=== PATIENT | male | born 1965 | race Caucasian/White ===

== ENCOUNTER 2017-02-22 03:20 | Inpatient (IN) | payer OTHER ==
[~2017-02-22] VITALS: Ht 167.6 cm; Wt 111.4 kg
[~2017-02-22 03:20] MED LIST: ADV100/50 INH; ALBUTEROL0.09 MG/A1 IH; ALPRAZOLAM PO; ALPRAZOLAM2 MG PO; ASPIRIN PO; ATOXIMETIN-B1 CAP PO; CLA10 PO; CLINDAMYCIN HC300 MG PO; COL100 PO; FLO4 PO; FUROSEMIDE40 MG PO; GUAIFENESI100 MG/52 PO; IPRATROPIUM BROM3 M2 HHN; KADIAN60 MG PO; LAC PO; LASIX20 MG PO; LEVAQUIN500 MG PO; LOVASTATIN20 MG PO; MEDDP PO; MORPHINE SULFAT15 M5 PO; MORPHINE SULFAT30 M2 PO; NIC14 TD; OMEPRAZOLE D/R20 M1 PO; OXYC PO; OXYCODONE HCL30 M1 PO; OXYCODONE30 MG PO; PRILOSEC OTC20 MG PO; PROINH INH; PULMICORT0.5 MG/2 M IH; SING10 PO; SPIRIVA18 MC1 INH; SPIRIVA18 MCG IH; TYLENOL PR; WARFARIN SOD5 M1 PO; XAN1 PO; XANAX2 MG PO; XARELTO10 M1 PO; ZES10 PO; ZESTRIL20 MG PO
[2017-02-22 04:06] LABS: PLATELET COUNT 282 x10^3mcL (130-400)
[2017-02-22 04:08] LABS: RED CELL DISTRIBUTION WIDTH 16.3 % (11.5-14.5)
[2017-02-22 04:17] LABS: CARBON DIOXIDE 29.2 mmol/L (21-32); CREATININE SERUM 2.1 mg/dL (0.7-1.3); POTASSIUM SERUM 3.6 mmol/L (3.5-5.1)
[2017-02-22 04:21] LABS: BILIRUBIN TOTAL 1.39 mg/dL (0.20-1.00)
[2017-02-22 04:23] LABS: ALBUMIN 1.9 g/dL (3.4-5.0)
[2017-02-22 04:33] LABS: CK-MB 0.8 ng/mL (0-3.6)
[2017-02-22 06:04] VITALS: BP 123/69
[2017-02-22 06:17] VITALS: BP 115/71
[2017-02-22 08:44] LABS: FREE T4 1.82 ng/dL (0.76-1.46); FREE THYROXINE INDEX 3.5 ug/dL (1.4-4.5); T4(THYROXINE) 9.2 ug/dL (4.7-13.3)
[2017-02-22 08:51] LABS: MAGNESIUM 1.6 mg/dL (1.8-2.4); PHOSPHOROUS 3.9 mg/dL (2.5-4.9)
[2017-02-22 08:52] LABS: CHOLESTEROL/HDL RATIO 3.6
[2017-02-22 09:00] LABS: T3 TOTAL 0.78 ng/mL
[2017-02-22 11:35] VITALS: BP 125/64
[2017-02-22 15:08] VITALS: BP 134/72
[2017-02-22 16:08] LABS: UA SPECIFIC GRAVITY <=1.005 (1.005-1.035); microscopic required? YES; urine erythrocyte 2+ (NEGATIVE)
[2017-02-22 17:55] VITALS: BP 123/72
[2017-02-22 21:38] VITALS: BP 113/72
[2017-02-23] VITALS (10 sets, daily range): BP systolic 90–143; BP diastolic 45–92
[2017-02-23 07:38] LABS: CALCIUM 8.3 mg/dL (8.5-10.1); CARBON DIOXIDE 22.9 mmol/L (21-32); CREATININE SERUM 1.9 mg/dL (0.7-1.3); MAGNESIUM 1.6 mg/dL (1.8-2.4); PHOSPHOROUS 4.3 mg/dL (2.5-4.9); POTASSIUM SERUM 3.7 mmol/L (3.5-5.1)
[2017-02-23 07:49] LABS: PLATELET COUNT 201 x10^3mcL (130-400)
[2017-02-23 08:05] LABS: BASOPHIL % 0 % (0-2); RED CELL DISTRIBUTION WIDTH 16.2 % (11.5-14.5)
[2017-02-24] VITALS (18 sets, daily range): BP systolic 83–117; BP diastolic 43–74
[2017-02-24 05:51] LABS: BASOPHIL % 0.1 % (0-2); PLATELET COUNT 196 x10^3mcL (130-400)
[2017-02-24 05:57] LABS: CALCIUM 8.3 mg/dL (8.5-10.1); CARBON DIOXIDE 23.3 mmol/L (21-32); MAGNESIUM 1.7 mg/dL (1.8-2.4); POTASSIUM SERUM 3.4 mmol/L (3.5-5.1)
[2017-02-24 06:07] LABS: RED CELL DISTRIBUTION WIDTH 16.6 % (11.5-14.5)
[2017-02-24 07:07] LABS: AMPHETAMINE QUAL UR NONE DETECTED (NEG <=1000)
[2017-02-25] VITALS (17 sets, daily range): BP systolic 18–120; BP diastolic 44–74
[2017-02-25 05:56] LABS: CALCIUM 8.2 mg/dL (8.5-10.1); CARBON DIOXIDE 23.4 mmol/L (21-32); MAGNESIUM 1.9 mg/dL (1.8-2.4); PHOSPHOROUS 2.8 mg/dL (2.5-4.9); POTASSIUM SERUM 4.1 mmol/L (3.5-5.1)
[2017-02-25 06:20] LABS: BASOPHIL % 0.1 % (0-2); PLATELET COUNT 169 x10^3mcL (130-400)
[2017-02-25 06:22] LABS: RED CELL DISTRIBUTION WIDTH 16.5 % (11.5-14.5)
[2017-02-26] VITALS (18 sets, daily range): BP systolic 87–129; BP diastolic 49–110
[2017-02-26 05:48] LABS: BASOPHIL % 0.2 % (0-2); PLATELET COUNT 186 x10^3mcL (130-400); RED CELL DISTRIBUTION WIDTH 17.2 % (11.5-14.5)
[2017-02-26 05:52] LABS: CALCIUM 8.1 mg/dL (8.5-10.1); CARBON DIOXIDE 24.6 mmol/L (21-32); CREATININE SERUM 2.1 mg/dL (0.7-1.3); MAGNESIUM 2.1 mg/dL (1.8-2.4); PHOSPHOROUS 2.9 mg/dL (2.5-4.9); POTASSIUM SERUM 4.5 mmol/L (3.5-5.1)
[2017-02-27] VITALS (16 sets, daily range): BP systolic 108–138; BP diastolic 39–89
[2017-02-27 05:47] LABS: CALCIUM 8.3 mg/dL (8.5-10.1); CARBON DIOXIDE 23.6 mmol/L (21-32); CREATININE SERUM 2.1 mg/dL (0.7-1.3); PHOSPHOROUS 3.9 mg/dL (2.5-4.9); POTASSIUM SERUM 4.9 mmol/L (3.5-5.1)
[2017-02-27 05:49] LABS: BASOPHIL % 0.4 % (0-2); PLATELET COUNT 179 x10^3mcL (130-400)
[2017-02-27 05:50] LABS: RED CELL DISTRIBUTION WIDTH 17.2 % (11.5-14.5)
[2017-02-28] VITALS (18 sets, daily range): BP systolic 109–138; BP diastolic 56–95
[2017-02-28 04:41] LABS: BASOPHIL % 1.5 % (0-2); PLATELET COUNT 178 x10^3mcL (130-400)
[2017-02-28 04:47] LABS: RED CELL DISTRIBUTION WIDTH 17.2 % (11.5-14.5)
[2017-02-28 04:54] LABS: CALCIUM 8.2 mg/dL (8.5-10.1); CARBON DIOXIDE 24.5 mmol/L (21-32); CREATININE SERUM 1.9 mg/dL (0.7-1.3); MAGNESIUM 1.9 mg/dL (1.8-2.4); PHOSPHOROUS 3.7 mg/dL (2.5-4.9); POTASSIUM SERUM 4.2 mmol/L (3.5-5.1)
[2017-03-01] VITALS (19 sets, daily range): BP systolic 99–135; BP diastolic 59–87
[2017-03-01 05:12] LABS: CALCIUM 8.2 mg/dL (8.5-10.1); CARBON DIOXIDE 24.4 mmol/L (21-32); CREATININE SERUM 1.6 mg/dL (0.7-1.3); POTASSIUM SERUM 4.4 mmol/L (3.5-5.1)
[2017-03-01 05:19] LABS: BASOPHIL % 0.3 % (0-2); PLATELET COUNT 184 x10^3mcL (130-400)
[2017-03-01 05:20] LABS: RED CELL DISTRIBUTION WIDTH 17.2 % (11.5-14.5)
[2017-03-02] VITALS (18 sets, daily range): BP systolic 94–138; BP diastolic 52–90
[2017-03-02 03:06] LABS: BASOPHIL % 0.1 % (0-2); PLATELET COUNT 179 x10^3mcL (130-400)
[2017-03-02 03:22] LABS: RED CELL DISTRIBUTION WIDTH 17.4 % (11.5-14.5)
[2017-03-02 03:23] LABS: CALCIUM 8.1 mg/dL (8.5-10.1); CARBON DIOXIDE 24.8 mmol/L (21-32); CREATININE SERUM 1.5 mg/dL (0.7-1.3); MAGNESIUM 1.8 mg/dL (1.8-2.4); PHOSPHOROUS 3.1 mg/dL (2.5-4.9); POTASSIUM SERUM 4.1 mmol/L (3.5-5.1)
[2017-03-03] VITALS (17 sets, daily range): BP systolic 87–141; BP diastolic 53–86
[2017-03-03 05:41] LABS: BASOPHIL % 0.1 % (0-2); PLATELET COUNT 152 x10^3mcL (130-400)
[2017-03-03 05:51] LABS: CARBON DIOXIDE 24.7 mmol/L (21-32); CREATININE SERUM 1.5 mg/dL (0.7-1.3); POTASSIUM SERUM 4.4 mmol/L (3.5-5.1)
[2017-03-03 05:59] LABS: RED CELL DISTRIBUTION WIDTH 18.2 % (11.5-14.5)
[2017-03-04] VITALS (17 sets, daily range): BP systolic 97–129; BP diastolic 64–97
[2017-03-04 06:14] LABS: CARBON DIOXIDE 23.2 mmol/L (21-32); CREATININE SERUM 1.5 mg/dL (0.7-1.3); MAGNESIUM 1.8 mg/dL (1.8-2.4); PHOSPHOROUS 3.9 mg/dL (2.5-4.9); PLATELET COUNT 130 x10^3mcL (130-400); POTASSIUM SERUM 4.2 mmol/L (3.5-5.1)
[2017-03-04 06:15] LABS: BASOPHIL % 0 % (0-2); RED CELL DISTRIBUTION WIDTH 18.1 % (11.5-14.5)
[2017-03-05] VITALS (19 sets, daily range): BP systolic 89–141; BP diastolic 41–109
[2017-03-05 05:38] LABS: BASOPHIL % 0.5 % (0-2)
[2017-03-05 05:44] LABS: PLATELET COUNT 122 x10^3mcL (130-400); RED CELL DISTRIBUTION WIDTH 18.5 % (11.5-14.5)
[2017-03-05 05:52] LABS: CARBON DIOXIDE 24.8 mmol/L (21-32); CREATININE SERUM 1.4 mg/dL (0.7-1.3); MAGNESIUM 1.7 mg/dL (1.8-2.4); PHOSPHOROUS 3.6 mg/dL (2.5-4.9); POTASSIUM SERUM 4.2 mmol/L (3.5-5.1)
[2017-03-06] VITALS (14 sets, daily range): BP systolic 76–140; BP diastolic 45–98
[2017-03-06 05:25] LABS: BASOPHIL % 0.9 % (0-2)
[2017-03-06 05:36] LABS: PLATELET COUNT 103 x10^3mcL (130-400); RED CELL DISTRIBUTION WIDTH 18.5 % (11.5-14.5)
[2017-03-06 05:43] LABS: CALCIUM 7.7 mg/dL (8.5-10.1); CARBON DIOXIDE 29.7 mmol/L (21-32); CREATININE SERUM 1.4 mg/dL (0.7-1.3); MAGNESIUM 2.2 mg/dL (1.8-2.4); PHOSPHOROUS 3.8 mg/dL (2.5-4.9); POTASSIUM SERUM 3.1 mmol/L (3.5-5.1)
[2017-03-07] VITALS (19 sets, daily range): BP systolic 89–137; BP diastolic 34–90
[2017-03-07 05:13] LABS: CARBON DIOXIDE 26.4 mmol/L (21-32); CREATININE SERUM 1.5 mg/dL (0.7-1.3); POTASSIUM SERUM 3.8 mmol/L (3.5-5.1)
[2017-03-07 05:34] LABS: PLATELET COUNT 103 x10^3mcL (130-400); RED CELL DISTRIBUTION WIDTH 20.5 % (11.5-14.5)
[2017-03-07 06:08] LABS: BAND NEUTROPHIL 0 % (0-10); BASOPHIL 0 % (0-2); MONOCYTE 6 % (0-7); SEGMENTED NEUTROPHILS 87 % (37-75)
[2017-03-07 06:11] LABS: ovalocyte/elliptocyte 1+; rbc morphology (normal/abnorm) ABNORMAL (NORMAL)
[2017-03-07 06:12] LABS: PLATELET MORPHOLOGY PLATELETS DECREASED
[2017-03-08] VITALS (9 sets, daily range): BP systolic 99–139; BP diastolic 60–110
[2017-03-08 05:57] LABS: PLATELET COUNT 121 x10^3mcL (130-400); RED CELL DISTRIBUTION WIDTH 21.6 % (11.5-14.5)
[2017-03-08 06:08] LABS: CALCIUM 8.1 mg/dL (8.5-10.1); CARBON DIOXIDE 26.2 mmol/L (21-32); CREATININE SERUM 1.5 mg/dL (0.7-1.3); PHOSPHOROUS 3.2 mg/dL (2.5-4.9); POTASSIUM SERUM 4.1 mmol/L (3.5-5.1)
[2017-03-08 08:13] LABS: BAND NEUTROPHIL 0 % (0-10); BASOPHIL 0 % (0-2); MONOCYTE 6 % (0-7); SEGMENTED NEUTROPHILS 85 % (37-75)
[2017-03-08 08:15] LABS: PLATELET MORPHOLOGY PLATELETS NORMAL; rbc morphology (normal/abnorm) ABNORMAL (NORMAL)
[2017-03-08 08:16] LABS: ovalocyte/elliptocyte 1+; tear drop cell (dacryocyte) 1+
[2017-03-09] VITALS (18 sets, daily range): BP systolic 95–136; BP diastolic 40–82
[2017-03-09 05:34] LABS: CALCIUM 8.1 mg/dL (8.5-10.1); CARBON DIOXIDE 26.2 mmol/L (21-32); CREATININE SERUM 1.4 mg/dL (0.7-1.3); MAGNESIUM 1.8 mg/dL (1.8-2.4); PHOSPHOROUS 2.9 mg/dL (2.5-4.9); PLATELET COUNT 104 x10^3mcL (130-400); RED CELL DISTRIBUTION WIDTH 20.6 % (11.5-14.5)
[2017-03-09 05:45] LABS: BAND NEUTROPHIL 2 % (0-10); METAMYELOCTE 2 % (0-2); MONOCYTE 2 % (0-7); SEGMENTED NEUTROPHILS 83 % (37-75)
[2017-03-09 05:48] LABS: ovalocyte/elliptocyte 1+; rbc morphology (normal/abnorm) ABNORMAL (NORMAL); tear drop cell (dacryocyte) 1+
[2017-03-10] VITALS (17 sets, daily range): BP systolic 86–131; BP diastolic 39–92
[2017-03-10 05:42] LABS: CALCIUM 8.4 mg/dL (8.5-10.1); CARBON DIOXIDE 26.8 mmol/L (21-32); CREATININE SERUM 1.5 mg/dL (0.7-1.3); MAGNESIUM 1.7 mg/dL (1.8-2.4); PHOSPHOROUS 3.9 mg/dL (2.5-4.9); POTASSIUM SERUM 3.6 mmol/L (3.5-5.1)
[2017-03-10 06:17] LABS: BASOPHIL % 0.6 % (0-2); PLATELET COUNT 75 x10^3mcL (130-400); RED CELL DISTRIBUTION WIDTH 21.4 % (11.5-14.5)
[2017-03-10 08:31] LABS: ovalocyte/elliptocyte 1+; rbc morphology (normal/abnorm) ABNORMAL (NORMAL)
[2017-03-11] VITALS (18 sets, daily range): BP systolic 82–123; BP diastolic 39–75
[2017-03-11 05:33] LABS: BASOPHIL % 0.5 % (0-2)
[2017-03-11 05:45] LABS: CALCIUM 8.2 mg/dL (8.5-10.1); CARBON DIOXIDE 28.3 mmol/L (21-32); CREATININE SERUM 1.6 mg/dL (0.7-1.3); MAGNESIUM 1.9 mg/dL (1.8-2.4); PHOSPHOROUS 3.2 mg/dL (2.5-4.9); POTASSIUM SERUM 3.6 mmol/L (3.5-5.1)
[2017-03-11 06:02] LABS: PLATELET COUNT 78 x10^3mcL (130-400); RED CELL DISTRIBUTION WIDTH 21.3 % (11.5-14.5)
[2017-03-11 06:36] LABS: ovalocyte/elliptocyte 1+; rbc morphology (normal/abnorm) ABNORMAL (NORMAL); tear drop cell (dacryocyte) 1+
[2017-03-12] VITALS (17 sets, daily range): BP systolic 82–109; BP diastolic 44–81
[2017-03-12 05:46] LABS: BASOPHIL % 0.5 % (0-2)
[2017-03-12 05:47] LABS: CALCIUM 8.1 mg/dL (8.5-10.1); CARBON DIOXIDE 28.5 mmol/L (21-32); CREATININE SERUM 1.6 mg/dL (0.7-1.3); MAGNESIUM 1.8 mg/dL (1.8-2.4); PHOSPHOROUS 3.1 mg/dL (2.5-4.9); POTASSIUM SERUM 3.2 mmol/L (3.5-5.1)
[2017-03-12 05:51] LABS: RED CELL DISTRIBUTION WIDTH 22.4 % (11.5-14.5)
[2017-03-12 05:53] LABS: PLATELET COUNT 83 x10^3mcL (130-400)
[2017-03-12 06:00] LABS: rbc morphology (normal/abnorm) ABNORMAL (NORMAL)
[2017-03-12 06:02] LABS: ovalocyte/elliptocyte 1+
[2017-03-13] VITALS (20 sets, daily range): BP systolic 84–130; BP diastolic 45–83; Ht 167.6 cm; Wt 111.4 kg
[2017-03-13 05:37] LABS: BASOPHIL % 0.4 % (0-2)
[2017-03-13 05:39] LABS: PLATELET COUNT 76 x10^3mcL (130-400); RED CELL DISTRIBUTION WIDTH 22.3 % (11.5-14.5)
[2017-03-13 05:47] LABS: CALCIUM 8.1 mg/dL (8.5-10.1); CREATININE SERUM 1.5 mg/dL (0.7-1.3); MAGNESIUM 1.8 mg/dL (1.8-2.4); PHOSPHOROUS 3.2 mg/dL (2.5-4.9); POTASSIUM SERUM 3.7 mmol/L (3.5-5.1)
[2017-03-13 05:54] LABS: rbc morphology (normal/abnorm) ABNORMAL (NORMAL)
[2017-03-13 05:55] LABS: ovalocyte/elliptocyte 1+; tear drop cell (dacryocyte) 1+
[2017-03-13] MEDS ORDERED: IPRATROPIUM BROM3 M2 HHN ×2 (13:41→13:42)
[2017-03-13] MEDS ORDERED: NIT0.4 SL (13:42)
[2017-03-13] MEDS ORDERED: BET80 PO (13:45)
[2017-03-13] MEDS ORDERED: TYL325 PO (13:45)
[2017-03-13] MEDS ORDERED: BG FS (13:46)
[2017-03-13] MEDS ORDERED: LAC30L PO (13:46)
[2017-03-13] MEDS ORDERED: KCL20L NG ×2 (13:47)
[2017-03-13] MEDS ORDERED: L20I IV (13:49)
[2017-03-13] MEDS ORDERED: DEXPF IV (13:49)
[2017-03-13] MEDS ORDERED: PULMICORT0.5 MG/2 M IH (13:51)
[2017-03-13] MEDS ORDERED: AMITIZA24 MC1 PO (13:51)
[2017-03-13] MEDS ORDERED: ZOFI IV (13:52)
[2017-03-13] MEDS ORDERED: PROTONIX40 MG/Pac1 NG (13:53)
[2017-03-13] MEDS ORDERED: REGL NG (13:54)
[2017-03-13] MEDS ORDERED: LAC PO (13:55)
[2017-03-13] MEDS ORDERED: SOL40I IV (13:55)
[2017-03-13] MEDS ORDERED: HUMULIN R100 U/1 M1 SC (13:56)
[2017-03-13] MEDS ORDERED: NIZC TOP (13:58)
[2017-03-13] MEDS ORDERED: HIBICLENS118 ML TOP (13:59)
[2017-03-13] MEDS ORDERED: MVIL PO (14:00)
[2017-03-13] MEDS ORDERED: LEV500PM IV (14:29)
[2017-03-13] MEDS ORDERED: VANCOMYCIN1.5 GM/252 IV (14:45)
[2017-03-13] MEDS ORDERED: MORPHINE S IV (14:50)
[2017-03-13] MEDS ORDERED: VER5I IV (14:52)
[2017-03-13] MEDS ORDERED: [UNRECOGNIZED DRUG - OTHER] IV (14:54)
[2017-03-14] VITALS (18 sets, daily range): BP systolic 87–114; BP diastolic 45–75
[2017-03-14 07:20] LABS: BASOPHIL % 0.9 % (0-2)
[2017-03-14 07:28] LABS: CALCIUM 8.2 mg/dL (8.5-10.1); CREATININE SERUM 1.4 mg/dL (0.7-1.3); POTASSIUM SERUM 4.3 mmol/L (3.5-5.1)
[2017-03-14 07:30] LABS: PLATELET COUNT 69 x10^3mcL (130-400); RED CELL DISTRIBUTION WIDTH 21.4 % (11.5-14.5)
[2017-03-15] VITALS (18 sets, daily range): BP systolic 90–149; BP diastolic 48–98
[2017-03-15 06:03] LABS: BASOPHIL % 0.8 % (0-2)
[2017-03-15 06:04] LABS: PLATELET COUNT 65 x10^3mcL (130-400); RED CELL DISTRIBUTION WIDTH 22.2 % (11.5-14.5)
[2017-03-15 06:07] LABS: CALCIUM 8.4 mg/dL (8.5-10.1); CREATININE SERUM 1.4 mg/dL (0.7-1.3); POTASSIUM SERUM 3.2 mmol/L (3.5-5.1)
[2017-03-16] VITALS (18 sets, daily range): BP systolic 88–166; BP diastolic 41–79
[2017-03-16 04:36] LABS: CALCIUM 8.2 mg/dL (8.5-10.1); CARBON DIOXIDE 29.8 mmol/L (21-32); CREATININE SERUM 1.4 mg/dL (0.7-1.3); POTASSIUM SERUM 3.4 mmol/L (3.5-5.1)
[2017-03-16 04:38] LABS: BASOPHIL % 0 % (0-2); PLATELET COUNT 57 x10^3mcL (130-400); RED CELL DISTRIBUTION WIDTH 22.5 % (11.5-14.5)
== END 2017-03-17 00:53 | disposition short-term general hospital (02) | DRG 4 ==
LOC: ED 03:20 → IC 04:59 → DU 04:59 → IC 02-23 17:12
PROVIDERS: Emergency Medicine; Family Medicine; Student in an Organized Health Care Education/Training Program; ADMIT Family Medicine Sports Medicine
PROC: 5A1955Z Respiratory Ventilation, Greater than 96 Consecutive Hours (ICD-10-PCS; principal; 2017-02-23)
PROC: 0BH17EZ Insertion of Endotracheal Airway into Trachea, Via Natural or Artificial Opening (ICD-10-PCS; 2017-02-23)
PROC: 05HM33Z Insertion of Infusion Device into Right Internal Jugular Vein, Percutaneous Approach (ICD-10-PCS; 2017-02-24)
PROC: B543ZZA Ultrasonography of Right Jugular Veins, Guidance (ICD-10-PCS; 2017-02-24)
PROC: 5A2204Z Restoration of Cardiac Rhythm, Single (ICD-10-PCS; 2017-03-01)
PROC: 0BH17EZ Insertion of Endotracheal Airway into Trachea, Via Natural or Artificial Opening (ICD-10-PCS; 2017-03-02)
PROC: 5A1945Z Respiratory Ventilation, 24-96 Consecutive Hours (ICD-10-PCS; 2017-03-02)
PROC: 5A2204Z Restoration of Cardiac Rhythm, Single (ICD-10-PCS; 2017-03-03)
PROC: 0D9680Z Drainage of Stomach with Drainage Device, Via Natural or Artificial Opening Endoscopic (ICD-10-PCS; 2017-03-05)
PROC: 0B110F4 Bypass Trachea to Cutaneous with Tracheostomy Device, Open Approach (ICD-10-PCS; 2017-03-11)
PROC: 0DH63UZ Insertion of Feeding Device into Stomach, Percutaneous Approach (ICD-10-PCS; 2017-03-13)
DX: A41.02 Sepsis due to Methicillin resistant Staphylococcus aureus (principal); J96.01 Acute respiratory failure with hypoxia; N17.0 Acute kidney failure with tubular necrosis; E43 Unspecified severe protein-calorie malnutrition; J69.0 Pneumonitis due to inhalation of food and vomit; G93.40 Encephalopathy, unspecified; K29.01 Acute gastritis with bleeding; J44.1 Chronic obstructive pulmonary disease with (acute) exacerbation; D68.69 Other thrombophilia; N39.0 Urinary tract infection, site not specified; E87.0 Hyperosmolality and hypernatremia; I85.00 Esophageal varices without bleeding; E11.9 Type 2 diabetes mellitus without complications; R65.20 Severe sepsis without septic shock; L89.152 Pressure ulcer of sacral region, stage 2; I48.91 Unspecified atrial fibrillation; R31.9 Hematuria, unspecified; E87.6 Hypokalemia; E83.42 Hypomagnesemia; D64.9 Anemia, unspecified; K74.60 Unspecified cirrhosis of liver; I10 Essential (primary) hypertension; I34.0 Nonrheumatic mitral (valve) insufficiency; G47.33 Obstructive sleep apnea (adult) (pediatric); B18.2 Chronic viral hepatitis C; Z68.32 Body mass index [BMI] 32.0-32.9, adult; F17.210 Nicotine dependence, cigarettes, uncomplicated; Z86.718 Personal history of other venous thrombosis and embolism; Z86.14 Personal history of Methicillin resistant Staphylococcus aureus infection; Z22.322 Carrier or suspected carrier of Methicillin resistant Staphylococcus aureus
CPT/HCPCS: 31500; 36556; 36600; 43235; 78598; 83880; 84439; 90658; A4628; A9540; C9113; J0171; J0330; J1200; J1610; J1642; J1644; J1815; J1940; J1956; J2001; J2060; J2250; J2270; J2310; J2405; J2704; J2765; J2920; J2930; J3010; J3370; J3430; J3475; J3480; J3490; J7030; J7040; J7050; J7620; J7626; J8597; P9035; Q0092